=== PATIENT | female | born 1995 ===

== ENCOUNTER 2018-10-17 07:47 | Inpatient (IN) | payer OTHER ==
[2018-10-17] MEDS ORDERED: Lidocaine 5% Patch TD STA (07:55)
--- NOTE | 2018-10-17 07:57 | ED PDOC ---
Arrival/HPI - General Chief Complaint: Back Pain Time Seen by Provider: 10/17/18 07:47 Historian: Patient - History of Present Illness Narrative History of Present Illness (Text): 10/17/18 07:54 A 23 year old female, whose past medical history includes Hodgkin's Lymphoma, is brought into the emergency department via EMS for a complaint of lower back pain. The patient notes that she was walking when she suddenly felt a pain in her lower back. She notes that her legs went numb and she fell onto the floor. The patient states that she recently had a cold. The patient denies fevers, chills, headache, dizziness, chest pain, shortness of breath, dyspnea on exertion, abdominal pain, nausea, vomiting, diarrhea, urinary/bowel changes, or any other complaint. Time/Duration: Prior to Arrival Symptom Onset: Sudden Symptom Course: Unchanged Activities at Onset: Rest, Light Context: Walking, Street Past Medical History - Provider Review Nursing Documentation Reviewed: Yes - Cardiac Hx Cardiac Disorders: No - Pulmonary Hx Respiratory Disorders: No - Neurological Hx Neurological Disorder: No - HEENT Hx HEENT Disorder: No - Renal Hx Renal Disorder: No - Endocrine/Metabolic Hx Endocrine Disorders: No - Hematological/Oncological Hx Cancer: Yes (hodgkin's lymphoma) - Integumentary Hx Dermatological Disorder: No - Musculoskeletal/Rheumatological Hx Musculoskeletal Disorders: No - Psychiatric Hx Substance Use: No - Surgical History Other/Comment: Neck pain. 2 bone marrow biopsy Family/Social History - Physician Review Nursing Documentation Reviewed: Yes Family/Social History: No Known Family HX Smoking Status: Never Smoked Hx Alcohol Use: No Hx Substance Use: No Allergies/Home Meds Allergies/Adverse Reactions: Allergies No Known Allergies Allergy (Verified 10/17/18 07:53) Home Medications: Home Meds Medication Instructions Recorded Confirmed No Known Home Med 10/17/18 10/17/18 Review of Systems - Physician Review All systems were reviewed & negative as marked: Yes - Review of Systems Constitutional: absent: Fevers Respiratory: absent: SOB Cardiovascular: absent: Chest Pain, OLIVAREZ Gastrointestinal: absent: Abdominal Pain, Stool Changes, Diarrhea, Nausea, Vomiting Genitourinary Female: absent: Urine Output Changes Musculoskeletal: Back Pain (Lower back pain.) Neurological: absent: Headache, Dizziness Physical Exam - Physical Exam Narrative Physical Exam (Text): 10/17/18 07:59 Gen: VS reviewed, alert, well developed, well nourished, nontoxic. Severe distress secondary to pain. ENT: normal pharynx. Eye: EOMI, PERRL. Neck: no JVD, supple, no adenopathy. CV: regular rate, regular rhythm, no rubs, no murmur, no gallops, S1, S2, pulses equal and strong. Pulm: no distress, clear to auscultation, no wheeze, no rhonchi, breath sounds equal, no rales. Abd: soft, nontender, no guarding, no rebound, no rigidity, normal bowel sounds. Ext: no edema. Hip limited ROM secondary to pain. Lowe extremity exam limited due to severity of patient's pain. Back: Back exam limited due to severity of patient's pain. Skin: good color, no rash, no cyanosis. Psych: responds appropriately to questions, normal affect. Neuro: oriented x 3, CN2-12 intact grossly, motor intact, sensation intact. Vital Signs Reviewed: Yes Temperature: Afebrile Blood Pressure: Normal Pulse: Regular Respiratory Rate: Normal Appearance: Positive for: Well-Appearing, Non-Toxic Mental Status: Positive for: Alert and Oriented X 3 Medical Decision Making ED Course and Treatment: 10/17/18 08:02 Impression: A 23 year old female is brought into the via EMS for a complaint of sudden onset lower back pain as she was walking this morning. Plan: -- Lumbar Spine Spine X-Ray -- Labs -- Tylenol, Toradol, Flexeril, and Lidoderm -- Reassess and disposition Prior Visits: Notes and results from previous visits were reviewed. Progress Notes: 10/17/18 07:55: Pain medication given. Will reassess patient. 10/17/18 12:[address] graves. patient to be admitted for intractable low back pain. multiple interventions given for analgesia with marginal relief. ketamine infusion only to be trialed in the ED. it will be discontinued once the patient is to leave the ED. 10/17/18 12:21 - Lab Interpretations I have reviewed the lab results: Yes - RAD Interpretation Narrative RAD Interpretations (Text): PROCEDURE: Radiographs of the Lumbar Spine Date Signed: 10/17/18944 Signed By: Clementine Infante MD IMPRESSION: No acute displaced fracture or subluxation. PROCEDURE: MR LUMBAR SPINE WITHOUT CONTRAST Date Signed: 10/17/18 1203 Signed By: Payam Zambrano MD IMPRESSION: Mild broad- based left paracentral disc herniation encroaches the descending left S1 nerve root without causing significant stenosis overall. Widely patent central canal and neural foramina throughout otherwise. No significant central stenosis throughout the examination. - Scribe Statement The provider has reviewed the documentation as recorded by the Scribe Alena Oliver Provider Scribe Attestation: All medical record entries made by the Scribe were at my direction and personally dictated by me. I have reviewed the chart and agree that the record accurately reflects my personal performance of the history, physical exam, medical decision making, and the department course for this patient. I have also personally directed, reviewed, and agree with the discharge instructions and disposition. Disposition/Present on Arrival - Present on Arrival Any Indicators Present on Arrival: No History of DVT/PE: No History of Uncontrolled Diabetes: No Urinary Catheter: No History of Decub. Ulcer: No History Surgical Site Infection Following: None - Disposition Have Diagnosis and Disposition been Completed?: Yes Diagnosis: Low back pain, Lumbar herniated disc Disposition: HOSPITALIZED Disposition Time: 12:21 Patient Plan: Observation Patient Problems: Current Active Problems Problem Status Onset Low back pain Acute Lumbar herniated disc Acute Condition: STABLE Referrals: PCP,NO [Primary Care Provider] - Follow up with primary Forms: [employer] ([place])
[2018-10-17 08:19] LABS: BASO # 0.03 K/mm3 (0.0-2.0); BASO % 0.6 % (0.0-3.0); EOS # 0.3 (0.0-0.7); EOS % 5.8 % (1.5-5.0); GRAN # 2.67 (1.4-6.5); GRAN % 51.6 % (50.0-68.0); HEMOGLOBIN 12.8 g/dL (12.0-16.0); LYMPH # 1.7 (1.2-3.4); LYMPH % 32.1 % (22.0-35.0); MEAN CELL VOLUME 89.6 fl (80.0-105.0); MEAN CORPUSCULAR HEMOGLOBIN 30.3 pg (25.0-35.0); MEAN CORPUSCULAR HGB CONC 33.9 g/dl (31.0-37.0); MEAN PLATELET VOLUME 11.6 fl (7.0-11.0); MONO # 0.5 (0.1-0.6); MONO % 9.9 % (1.0-6.0); RBC 4.22 10^6/uL (3.5-6.1); WHITE BLOOD COUNT 5.2 10^3/uL (4.5-11.0)
[2018-10-17 08:51] LABS: ALB/GLOB RATIO 1.1 (1.1-1.8); ALT/SGPT 8 U/L (7-56); AST/SGOT 24 U/L (14-36); BLOOD UREA NITROGEN 11 mg/dL (7-21); CALCIUM 9.1 mg/dL (8.4-10.5); GFR NON-AFRICAN AMERICAN > 60
[2018-10-17] MEDS ORDERED: Morphine 4 mg/ml ISec IVP STA (09:36)
--- NOTE | 2018-10-17 09:48 | RAD ---
Date of service: 10/17/2018 PROCEDURE: Radiographs of the Lumbar Spine. HISTORY: pain COMPARISON: None available. FINDINGS: BONES: Alignment appears satisfactory. No listhesis. No acute displaced fracture identified. DISC SPACES: Unremarkable. OTHER FINDINGS: None. IMPRESSION: No acute displaced fracture or subluxation.
[2018-10-17] MEDS ORDERED: Ketamine 50 mg/ml Inj (10 ml) IV STA (11:41)
[2018-10-17] MEDS ORDERED: Ketamine 10 mg/ml Inj (20 ml) IVPB STA ×2 (11:57→11:58)
--- NOTE | 2018-10-17 12:07 | MRI ---
Date of service: 10/17/2018 PROCEDURE: MR LUMBAR SPINE WITHOUT CONTRAST HISTORY: severe in tractable pain, hx lymphoma COMPARISON: None available. TECHNIQUE: Multiecho multiplanar sequences were performed through the lumbar spine without the use of intravenous contrast. FINDINGS: Normal lumbar lordosis. Vertebral body heights are preserved. Marrow signal unremarkable. Conus medullaris unremarkable at the level of L1-2. Prevertebral and paraspinal soft tissues are unremarkable. T12-L1: No disc herniation, spinal canal stenosis or neural foraminal narrowing. L1-2: No disc herniation, spinal canal stenosis or neural foraminal narrowing. L2-3: No disc herniation, spinal canal stenosis or neural foraminal narrowing. L3-4: No disc herniation, spinal canal stenosis or neural foraminal narrowing. L4-5: No disc herniation, spinal canal stenosis or neural foraminal narrowing. L5-S1: Mild broad-based left paracentral disc herniation encroaches the descending left S1 nerve root without causing significant stenosis overall. Neural foramina appear widely patent bilaterally. OTHER FINDINGS: None. IMPRESSION: Mild broad-based left paracentral disc herniation encroaches the descending left S1 nerve root without causing significant stenosis overall. Widely patent central canal and neural foramina throughout otherwise. No significant central stenosis throughout the examination.
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
[2018-10-17] MEDS: Morphine 4 mg/ml ISec IVP PRN ×2 (16:58→21:13)
[2018-10-17 17:00] VITALS: BMI 22.6
[2018-10-18] MEDS: Morphine 4 mg/ml ISec IVP PRN ×4 (02:51→21:06)
[2018-10-18 06:41] LABS: BASO # 0.02 K/mm3 (0.0-2.0); BASO % 0.4 % (0.0-3.0); EOS # 0.3 (0.0-0.7); GRAN # 2.38 (1.4-6.5); HEMOGLOBIN 12.5 g/dL (12.0-16.0); LYMPH # 1.5 (1.2-3.4); LYMPH % 32.2 % (22.0-35.0); MEAN CELL VOLUME 88.8 fl (80.0-105.0); MEAN CORPUSCULAR HEMOGLOBIN 29.9 pg (25.0-35.0); MEAN CORPUSCULAR HGB CONC 33.7 g/dl (31.0-37.0); MEAN PLATELET VOLUME 11.7 fl (7.0-11.0); MONO # 0.4 (0.1-0.6); MONO % 8.4 % (1.0-6.0); RBC 4.18 10^6/uL (3.5-6.1); RED CELL DISTRIBUTION WIDTH 13.8 % (11.5-14.5); WHITE BLOOD COUNT 4.5 10^3/uL (4.5-11.0)
[2018-10-18 06:42] LABS: INR 1.07; PARTIAL THROMBOPLASTIN TIME 31.9 Seconds (25.1-36.5); PROTHROMBIN TIME 12.3 SECONDS (9.4-12.5)
[2018-10-18 07:17] LABS: ALB/GLOB RATIO 1.2 (1.1-1.8); ALBUMIN 3.8 g/dL (3.0-4.8); ALT/SGPT 60 U/L (7-56); AST/SGOT 119 U/L (14-36); BLOOD UREA NITROGEN 11 mg/dL (7-21); CALCIUM 9.2 mg/dL (8.4-10.5); GFR NON-AFRICAN AMERICAN > 60
[2018-10-18] MEDS ORDERED: Enoxaparin 40 mg Syringe SC SCH (10:00)
--- NOTE | 2018-10-18 12:29 | CP.PCM.CON ---
History of Present Illness - History of Present Illness History of Present Illness: SPINE pt seen and examined. Full consult dictated. Rec exc HNP. Discussed with pt and family, including alternative options. They wish to proceed with surgery. Tent sched for tomorrow afternoon. Past Patient History - Past Social History Smoking Status: Never Smoked - CARDIAC Hx Cardiac Disorders: No - PULMONARY Hx Respiratory Disorders: No - NEUROLOGICAL Hx Neurological Disorder: No - HEENT Hx HEENT Problems: No - RENAL Hx Chronic Kidney Disease: No - ENDOCRINE/METABOLIC Hx Endocrine Disorders: No - HEMATOLOGICAL/ONCOLOGICAL Hx Cancer: Yes (hodgkin's lymphoma) - INTEGUMENTARY Hx Dermatological Problems: No - MUSCULOSKELETAL/RHEUMATOLOGICAL Hx Musculoskeletal Disorders: No - PSYCHIATRIC Hx Substance Use: No - SURGICAL HISTORY Other/Comment: Neck pain. 2 bone marrow biopsy Meds Allergies/Adverse Reactions: Allergies Allergy/AdvReac Type Severity Reaction Status Date / Time No Known Allergies Allergy Verified 10/17/18 07:53 - Medications Medications: Current Medications Cyclobenzaprine HCl (Flexeril) 5 mg PO TID [facility] Last Admin: 10/18/18 09:48 Dose: Not Given Ketorolac Tromethamine (Toradol) 30 mg IVP Q6H PRN PRN Reason: Pain, moderate (4-7) Last Admin: 10/18/18 08:28 Dose: 30 mg Morphine Sulfate (Morphine) 4 mg IVP Q4H PRN PRN Reason: Pain, severe (8-10) Last Admin: 10/18/18 02:51 Dose: 4 mg Pantoprazole Sodium (Protonix Ec Tab) 40 mg PO ACB [facility] Results - Vital Signs Recent Vital Signs: Last Vital Signs Temp 98.2 F 10/18/18 06:00 Pulse 61 10/18/18 06:00 Resp 18 10/18/18 06:00 BP 110/68 10/18/18 06:00 Pulse Ox 100 10/18/18 06:00 - Labs Result Diagrams: 10/18/18 06:00 10/18/18 06:00 Labs: Laboratory Results - last 24 hr 10/18/18 10/18/18 10/18/18 06:00 06:00 06:00 WBC 4.5 RBC 4.18 Hgb 12.5 Hct 37.1 MCV 88.8 MCH 29.9 MCHC 33.7 RDW 13.8 Plt Count 176 MPV 11.7 H Gran % 53.0 Lymph % (Auto) 32.2 [place] % (Auto) 8.4 H Eos % (Auto) 6.0 H Baso % (Auto) 0.4 Gran # 2.38 Lymph # (Auto) 1.5 [place] # (Auto) 0.4 Eos # (Auto) 0.3 Baso # (Auto) 0.02 PT 12.3 INR 1.07 APTT 31.9 Sodium 140 Potassium 4.6 Chloride 108 H Carbon Dioxide 26 Anion Gap 10 BUN 11 Creatinine 0.7 Est GFR ( Amer) > 60 Est GFR (Non-Af Amer) > 60 Random Glucose 88 Calcium 9.2 Total Bilirubin 0.7 AST 119 H D ALT 60 H Alkaline Phosphatase 81 Total Protein 7.1 Albumin 3.8 Globulin 3.2 Albumin/Globulin Ratio 1.2
--- NOTE | 2018-10-18 14:17 | CP.PCM.PN ---
<Rodri Dominguez - Last Filed: 10/18/18 14:43> Subjective - Date & Time of Evaluation Date of Evaluation: 10/18/18 Time of Evaluation: 07:40 - Subjective Subjective: Medicine Progress Note for Hospitalist Service, Dr. Faustina Dominguez, DO PGY-1 Pt seen and examined at bedside this am. States low back pain is a little improved compared to yesterday. States Flexeril and Morphine are helping with her symptoms. No acute events reported overnight by staff. Denies fever, chills. chest pain, sob, n/v/d/c, abd pain, urinary complaints, or other symptoms. States that it is difficult to ambulate out of bed without eliciting the low back pain. Objective - Vital Signs/Intake and Output Vital Signs (last 24 hours): Temp Pulse Resp BP Pulse Ox 98.2 F 61 18 110/68 100 10/18/18 06:00 10/18/18 06:00 10/18/18 06:00 10/18/18 06:00 10/18/18 06:00 Intake and Output: 10/18/18 10/18/18 06:59 18:59 Intake Total 200 Balance 200 - Medications Medications: Current Medications Cyclobenzaprine HCl (Flexeril) 5 mg PO TID [facility] Last Admin: 10/18/18 09:48 Dose: Not Given Ketorolac Tromethamine (Toradol) 30 mg IVP Q6H PRN PRN Reason: Pain, moderate (4-7) Last Admin: 10/18/18 08:28 Dose: 30 mg Morphine Sulfate (Morphine) 4 mg IVP Q4H PRN PRN Reason: Pain, severe (8-10) Last Admin: 10/18/18 13:00 Dose: 4 mg Pantoprazole Sodium (Protonix Ec Tab) 40 mg PO ACB [facility] - Labs Labs: 10/18/18 06:00 10/18/18 06:00 PT 12.3 SECONDS (9.4-12.5) 10/18/18 06:00 INR 1.07 10/18/18 06:00 APTT 31.9 Seconds (25.1-36.5) 10/18/18 06:00 - Constitutional Appears: Non-toxic, No Acute Distress - Head Exam Head Exam: ATRAUMATIC, NORMOCEPHALIC - Eye Exam Eye Exam: EOMI, Normal appearance, PERRL - ENT Exam ENT Exam: Mucous Membranes Moist - Respiratory Exam Respiratory Exam: Clear to Ausculation Bilateral, NORMAL BREATHING PATTERN. absent: Rales, Rhonchi, Wheezes - Cardiovascular Exam Cardiovascular Exam: REGULAR RHYTHM, +S1, +S2. absent: Gallop, Rubs, Murmur - GI/Abdominal Exam GI & Abdominal Exam: Soft, Normal Bowel Sounds. absent: Distended, Guarding, Tenderness, Organomegaly - Extremities Exam Extremities Exam: Normal Capillary Refill. absent: Calf Tenderness, Pedal Edema Additional comments: Unable to bend hips b/l due to pain, able to move feet and bend at knees without concerns - Neurological Exam Neurological Exam: Alert, Awake, CN II-XII Intact, Oriented x3 - Skin Skin Exam: Dry, Intact, Normal Color, Warm Assessment and Plan - Assessment and Plan (Free Text) Assessment: 23 y o female PMhx Hodgkin's lymphoma, admitted for intractable back pain 2/2 herniated disc. Plan: Intractable back pain Admit to med/surg Lumbar spine XR: no acute displaced fx or subluxation Lumbar spine MRI: Mild broad-based L paracentral disc herniation encroaches the descending L S1 nerve root without causing significant stenosis overall. Widely patent central canal and neural foramina throughout otherwise. No significant central stenosis throughout the exam. Flexeril 5 mg PO tid Toradol 30 mg q 6 h prn for pain Morphine 4 mg q [address] Angelo consulted, recs appreciated; pt to be NPO after midnight tomorrow for discectomy Ordered pre-op CXR Will follow-up repeat labs in am Will continue to monitor response to tx DVT/GI ppx: SCDs, Lovenox; Protonix daily Diet: Regular Pt seen, examined with, and plan discussed with Dr. Simon, attending physician. Rodri Dominguez DO PGY-1, Circulation Crew Leader Pager #[phone] <Faustina Simon R - Last Filed: 10/18/18 20:49> Objective - Vital Signs/Intake and Output Vital Signs (last 24 hours): Temp Pulse Resp BP Pulse Ox 98.2 F 61 18 110/68 100 10/18/18 06:00 10/18/18 06:00 10/18/18 06:00 10/18/18 06:00 10/18/18 06:00 - Medications Medications: Current Medications Cyclobenzaprine HCl (Flexeril) 5 mg PO TID [facility] Last Admin: 10/18/18 16:31 Dose: Not Given Ketorolac Tromethamine (Toradol) 30 mg IVP Q6H PRN PRN Reason: Pain, moderate (4-7) Last Admin: 10/18/18 08:28 Dose: 30 mg Morphine Sulfate (Morphine) 4 mg IVP Q4H PRN PRN Reason: Pain, severe (8-10) Last Admin: 10/18/18 16:31 Dose: 4 mg Pantoprazole Sodium (Protonix Ec Tab) 40 mg PO ACB [facility] - Labs Labs: 10/18/18 06:00 10/18/18 06:00 PT 12.3 SECONDS (9.4-12.5) 10/18/18 06:00 INR 1.07 10/18/18 06:00 APTT 31.9 Seconds (25.1-36.5) 10/18/18 06:00 Attending/Attestation - Attestation I have personally seen and examined this patient.: Yes I have fully participated in the care of the patient.: Yes I have reviewed all pertinent clinical information, including history, physical exam and plan: Yes Notes (Text): Patient seen and examined by me with resident at 9:40 AM on 10/18/18. Case including HPI, physical exam, and assessment and plan discussed with resident. Agree with above with following additions/corrections. Patient is a 23 year old female with past medical history significant for Hodgkins lymphoma in remission that presented to the emergency room with intractable lower back pain. Patient states she is still in a lot of pain. Patient states the pain in her lower back in the middle of her spine and radiates bilaterally and down her legs. Patient has numbness and weakness in her legs. Patient is sharp in nature. Movement makes it worse. Pain medications help the pain a little. No bowel or urinary incontinence. No chest pain or shortness of breath. No headaches or dizziness. No nausea, vomiting, or abdominal pain. No fevers or chills. No dysuria. Physical exam: General: Awake and alert lying in bed in some distress HEENT: Normocephalic, atraumatic. Extraocular muscles intact, pupils equal and reactive, no scleral icterus. Oropharynx is pink and moist. Neck is supple. Cardiovascular: Normal rhythm. Normal S1 and S2. No rubs or gallops appreciated Pulmonary: Normal respiratory effort. No rhonchi, rales, or wheezing appreciated. Gastrointestinal: Soft, nondistended. Nontender. Positive bowel sounds all 4 quadrants. No guarding. Musculoskeletal: Moves all extremities. Decreased range of motion lower extremities. Positive straight test leg bilaterally. Positive lumbar paraspinal muscle tenderness bilaterally. Central nervous system: AAO x3. CN 2-12 grossly intact. Positive numbness left great and second toe. Dermatologic: Skin warm and dry. Assessment and plan: Patient is a 23 year old female with past medical history significant for Hodgkins lymphoma in remission that presented to the emergency room with intractable lower back pain. 1. Intractable back pain. MRI lumbar spine per radiologist shows mild broad- based left paracentral disc herniation encroaches the descending left S1 nerve root without causing significant stenosis overall, widely patent central canal and neural foramina throughout otherwise, no significant central stenosis throughout. Patient with positive leg test bilaterally and numbness in left toes. Pain unable to move. Patient on flexeril, toradol, and IV morphine. Neurosurgery following, recommendations appreciated. Patient for microdiskectomy tomorrow. PT eval and treat. 2. History of Hodgkins lymphoma. No acute issues. In remission Case was discussed in detail with patient regarding current diagnosis and treatment plan. All questions answered.
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
[2018-10-19] MEDS: Morphine 4 mg/ml ISec IVP PRN ×3 (01:07→10:18)
[2018-10-19 02:29] LABS: URINE BILIRUBIN NEGATIVE (NEGATIVE); URINE BLOOD NEGATIVE (NEGATIVE); URINE GLUCOSE (UA) NEGATIVE (NEGATIVE); URINE LEUKOCYTE ESTERASE SMALL Leu/uL (NEGATIVE); URINE PROTEIN TRACE mg/dL (<30 mg/dL); URINE UROBILINOGEN 0.2 E.U./dL (<1 E.U./dL)
[2018-10-19 02:32] LABS: URINE APPEARANCE SL CLOUDY (CLEAR); URINE COLOR YELLOW (YELLOW)
[2018-10-19 02:36] LABS: HCG,QUALITATIVE URINE NEGATIVE (NEGATIVE)
[2018-10-19 02:40] LABS: URINE BACTERIA MANY (NEG); URINE EPITHELIAL CELLS 0 - 2 /hpf (0-5); URINE RBC 0 - 2 /hpf (0-2); URINE WBC 25 - 30 /hpf (0-6)
[2018-10-19 07:57] LABS: BASO # 0.01 K/mm3 (0.0-2.0); BASO % 0.2 % (0.0-3.0); EOS # 0.3 (0.0-0.7); EOS % 6.9 % (1.5-5.0); GRAN # 2.03 (1.4-6.5); GRAN % 46.7 % (50.0-68.0); HEMOGLOBIN 12.3 g/dL (12.0-16.0); LYMPH # 1.7 (1.2-3.4); LYMPH % 37.9 % (22.0-35.0); MEAN CELL VOLUME 88.9 fl (80.0-105.0); MEAN CORPUSCULAR HEMOGLOBIN 30.2 pg (25.0-35.0); MEAN PLATELET VOLUME 10.9 fl (7.0-11.0); MONO # 0.4 (0.1-0.6); MONO % 8.3 % (1.0-6.0); RBC 4.07 10^6/uL (3.5-6.1); RED CELL DISTRIBUTION WIDTH 13.9 % (11.5-14.5); WHITE BLOOD COUNT 4.4 10^3/uL (4.5-11.0)
--- NOTE | 2018-10-19 08:14 | RAD ---
Date of service: 10/18/2018 HISTORY: pre-op clearance COMPARISON: No prior. FINDINGS: LUNGS: No active pulmonary disease. PLEURA: No significant pleural effusion identified, no pneumothorax apparent. CARDIOVASCULAR: No aortic atherosclerotic calcification present. Normal cardiac size. No pulmonary vascular congestion. OSSEOUS STRUCTURES: No significant abnormalities. VISUALIZED UPPER ABDOMEN: Normal. OTHER FINDINGS: None. IMPRESSION: No acute cardiopulmonary disease appreciated.
[2018-10-19 08:17] LABS: ALB/GLOB RATIO 1.2 (1.1-1.8); ALBUMIN 3.9 g/dL (3.0-4.8); ALT/SGPT 43 U/L (7-56); AST/SGOT 55 U/L (14-36); BLOOD UREA NITROGEN 10 mg/dL (7-21); CALCIUM 9.4 mg/dL (8.4-10.5); GFR NON-AFRICAN AMERICAN > 60
[2018-10-19] MEDS: Pantoprazole 40 mg EC Tab PO SCH (09:00)
[2018-10-19] MEDS ORDERED: cefTRIAXone 1 gm 1 GM/100 ML BAG IVPB SCH (10:00)
--- NOTE | 2018-10-19 12:37 | CP.PCM.PN ---
<Rodri Dominguez - Last Filed: 10/19/18 12:33> Subjective - Date & Time of Evaluation Date of Evaluation: 10/19/18 Time of Evaluation: 07:30 - Subjective Subjective: Medicine Progress Note for Hospitalist Service, Dr. Faustina Dominguez, DO PGY-1 Pt seen and examined at bedside this am. Resting at bedside, states she is comfortable at the moment but that when she moves from side to side the pain is elicited. States that she walked to go to the bathroom overnight with assistance and was able to urinate but that her back pain flared up when she tried to squat. Denies fever, chills, chest pain, sob, n/v/d/c, abd pain, urinary complaints, or other symptoms. No acute events reported overnight by staff. Objective - Vital Signs/Intake and Output Vital Signs (last 24 hours): Temp Pulse Resp BP Pulse Ox 97.9 F 65 18 100/59 L 100 10/19/18 06:00 10/19/18 06:00 10/19/18 06:00 10/19/18 06:00 10/19/18 06:00 - Medications Medications: Current Medications Cyclobenzaprine HCl (Flexeril) 5 mg PO TID LAZARUS Last Admin: 10/19/18 10:18 Dose: Not Given Ceftriaxone Sodium (Rocephin 1 Gram Ivpb) 1 gm in 100 mls @ 100 mls/hr IVPB DAILY [facility]; Protocol Last Admin: 10/19/18 10:17 Dose: 100 mls/hr Ketorolac Tromethamine (Toradol) 30 mg IVP Q6H PRN PRN Reason: Pain, moderate (4-7) Last Admin: 10/18/18 08:28 Dose: 30 mg Morphine Sulfate (Morphine) 4 mg IVP Q4H PRN PRN Reason: Pain, severe (8-10) Last Admin: 10/19/18 10:18 Dose: 4 mg Pantoprazole Sodium (Protonix Ec Tab) 40 mg PO ACB LAZARUS Last Admin: 10/19/18 09:00 Dose: Not Given - Labs Labs: 10/19/18 07:15 10/19/18 07:15 PT 12.3 SECONDS (9.4-12.5) 10/18/18 06:00 INR 1.07 10/18/18 06:00 APTT 31.9 Seconds (25.1-36.5) 10/18/18 06:00 - Constitutional Appears: Non-toxic, No Acute Distress - Head Exam Head Exam: ATRAUMATIC, NORMOCEPHALIC - Eye Exam Eye Exam: EOMI, Normal appearance, PERRL - ENT Exam ENT Exam: Mucous Membranes Moist - Neck Exam Neck Exam: Full ROM, Normal Inspection. absent: Tenderness - Respiratory Exam Respiratory Exam: Clear to Ausculation Bilateral, NORMAL BREATHING PATTERN. absent: Rales, Rhonchi, Wheezes - Cardiovascular Exam Cardiovascular Exam: REGULAR RHYTHM, +S1, +S2. absent: Gallop, Rubs, Murmur - GI/Abdominal Exam GI & Abdominal Exam: Soft, Normal Bowel Sounds. absent: Distended, Guarding, Tenderness, Organomegaly - Extremities Exam Extremities Exam: Normal Capillary Refill. absent: Tenderness - Back Exam Back Exam: NORMAL INSPECTION Additional comments: Low back pain elicited with palpation and when pt flexes hips b/l - Neurological Exam Neurological Exam: Alert, Awake, CN II-XII Intact, Oriented x3 - Skin Skin Exam: Dry, Intact, Normal Color, Warm Assessment and Plan - Assessment and Plan (Free Text) Assessment: 23 y o female PMhx Hodgkin's lymphoma, admitted for intractable back pain 2/2 herniated disc. Plan: Intractable back pain Lumbar spine XR: no acute displaced fx or subluxation Lumbar spine MRI: Mild broad-based L paracentral disc herniation encroaches the descending L S1 nerve root without causing significant stenosis overall. Widely patent central canal and neural foramina throughout otherwise. No significant central stenosis throughout the exam. Flexeril 5 mg PO tid Toradol 30 mg q 6 h prn for pain Morphine 4 mg q [address] for pain Dr[address] Angelo consulted, recs appreciated; pt to OR today for discectomy Pre-op CXR demonstrates no acute cardiopulmonary disease Will follow-up repeat labs in am Will continue to monitor response to tx UTI - pt currently asymptomatic except for b/l low back pain; denies dysuria, burning with urination U/a on admission with pos nitrate, small LE, WBCs 25-30 Started on 1 g Rocephin IVPB daily DVT/GI ppx: SCDs, Lovenox; Protonix daily Diet: NPO, will resume regular diet after OR procedure Pt seen, examined with, and plan discussed with Dr. Simon, attending physician. Rodri Dominguez DO PGY-1, Full Stack Web Developer Pager #[phone] <Faustina Simon R - Last Filed: 10/20/18 16:35> Objective - Vital Signs/Intake and Output Vital Signs (last 24 hours): Temp Pulse Resp BP Pulse Ox 98.3 F 65 20 110/43 L 99 10/20/18 07:00 10/20/18 07:00 10/20/18 07:00 10/20/18 07:00 10/20/18 07:00 Intake and Output: 10/20/18 10/20/18 06:59 18:59 Intake Total 740 Balance 740 - Medications Medications: Current Medications Cefpodoxime Proxetil (Vantin) 200 mg PO Q12 [facility] Stop: 10/21/18 10:59 Last Admin: 10/20/18 10:38 Dose: 200 mg Cyclobenzaprine HCl (Flexeril) 5 mg PO TID LAZARUS Last Admin: 10/20/18 14:58 Dose: 5 mg Hydromorphone HCl (Dilaudid) 1 mg IVP Q4H PRN PRN Reason: Pain, severe (8-10) Stop: 10/21/18 12:30 Last Admin: 10/20/18 13:21 Dose: 1 mg Ketorolac Tromethamine (Toradol) 30 mg IVP Q6H [facility]ARUS Last Admin: 10/20/18 14:21 Dose: Not Given Oxycodone/Acetaminophen (Percocet 5/325 Mg Tab) 1 tab PO Q4 PRN PRN Reason: Pain, Mild (1-3) Last Admin: 10/19/18 18:55 Dose: 1 tab Pantoprazole Sodium (Protonix Ec Tab) 40 mg PO ACB LAZARUS Last Admin: 10/20/18 10:38 Dose: 40 mg - Labs Labs: 10/20/18 06:30 10/20/18 06:30 PT 12.3 SECONDS (9.4-12.5) 10/18/18 06:00 INR 1.07 10/18/18 06:00 APTT 31.9 Seconds (25.1-36.5) 10/18/18 06:00 Attending/Attestation - Attestation I have personally seen and examined this patient.: Yes I have fully participated in the care of the patient.: Yes I have reviewed all pertinent clinical information, including history, physical exam and plan: Yes Notes (Text): Patient seen and examined by me with resident at 10 AM on . Case including HPI, physical exam, and assessment and plan discussed with resident. Agree with above with following additions/corrections. Patient is a 23 year old female with past medical history significant for Hodgkins lymphoma in remission that presented to the emergency room with intractable lower back pain. Patient states she continues to have a lot of lower back pain. She states that she is having difficulty moving. No numbness, weakness, or tingling in her legs or toes today. Pain is still sharp in nature. Pain medications are helping. No bowel or urinary incontinence. No chest pain or shortness of breath. No headaches or dizziness. No nausea, vomiting, or abdominal pain. No fevers or chills. No dysuria. Physical exam: General: Awake and alert lying in bed in some distress HEENT: Normocephalic, atraumatic. Extraocular muscles intact, pupils equal and reactive, no scleral icterus. Oropharynx is pink and moist. Neck is supple. Cardiovascular: Normal rhythm. Normal S1 and S2. No rubs or gallops appreciated Pulmonary: Normal respiratory effort. No rhonchi, rales, or wheezing appreciated. Gastrointestinal: Soft, nondistended. Nontender. Positive bowel sounds all 4 quadrants. No guarding. Musculoskeletal: Moves all extremities. Decreased range of motion lower extremities. Positive straight test leg bilaterally. Positive lumbar paraspinal muscle tenderness bilaterally. Central nervous system: AAO x3. CN 2-12 grossly intact. Dermatologic: Skin warm and dry. Assessment and plan: Patient is a 23 year old female with past medical history significant for Hodgkins lymphoma in remission that presented to the emergency room with intractable lower back pain. 1. Intractable back pain. MRI lumbar spine per radiologist shows mild broad- based left paracentral disc herniation encroaches the descending left S1 nerve root without causing significant stenosis overall, widely patent central canal and neural foramina throughout otherwise, no significant central stenosis throughout. Patient with positive leg test bilaterally. Continue flexeril, toradol, and IV morphine. Neurosurgery following, recommendations appreciated. Patient for microdiskectomy today. PT eval and treat post surgery. 2. UTI. Urinalysis positive for UTI. ?UTI may be contributing to pain. Will place on Rocephin 3. History of Hodgkins lymphoma. No acute issues. In remission Case was discussed in detail with patient regarding current diagnosis and treatment plan. All questions answered.
[2018-10-19] MEDS ORDERED: Lidocaine 1% w Epi 1:100,000 Inj ONE (13:25)
[2018-10-19] MEDS ORDERED: Bupivacaine 0.5% 50 ML IJ ONE (13:25)
[2018-10-19] MEDS ORDERED: Absorbable Gelatin Sponge Size 100 ONE (13:25)
[2018-10-19] MEDS ORDERED: Thrombin Topical 20,000 Intl Units Spray Kit TOP ONE (13:26)
[2018-10-19] MEDS ORDERED: Remifentanil 2 MG PDS IV ONE (13:53)
[2018-10-19] MEDS ORDERED: Propofol 10 mg/ml Inj (20 ML) ONE (13:55)
[2018-10-19] MEDS ORDERED: Midazolam 2 MG/2 ML VIAL ONE (13:56)
[2018-10-19] MEDS ORDERED: Rocuronium 10 mg/ml (5 ml) ONE (13:57)
[2018-10-19] MEDS ORDERED: Lidocaine 1%/Epinephrine 1:100000 30 ml vial IJ ONE (14:52)
[2018-10-19] MEDS ORDERED: Bupivacaine 0.5% Inj(30mL) IJ ONE (15:35)
[2018-10-19] MEDS ORDERED: Potassium Ch 20mEq in D5-1/2NS 1,000 ML IV SCH (15:57)
[2018-10-19] MEDS: HYDROmorphone 0.5 mg/0.5 ml ISec IVP PRN ×2 (16:45→17:00)
[2018-10-19] MEDS ORDERED: HYDROmorphone 0.5 mg/0.5 ml ISec ONE ×2 (16:50→17:05)
[2018-10-19] MEDS: Oxycodone/Acetaminophen 5/325 mg Tab PO PRN (18:55)
[2018-10-19] MEDS: HYDROmorphone 1 mg/ml ISec IVP PRN (19:33)
[2018-10-20] MEDS: HYDROmorphone 1 mg/ml ISec IVP PRN ×5 (00:28→19:55)
[2018-10-20 07:13] LABS: BASO # 0.01 K/mm3 (0.0-2.0); BASO % 0.2 % (0.0-3.0); EOS # 0.3 (0.0-0.7); EOS % 5.5 % (1.5-5.0); GRAN # 3.64 (1.4-6.5); GRAN % 62.2 % (50.0-68.0); HEMOGLOBIN 11.3 g/dL (12.0-16.0); LYMPH # 1.3 (1.2-3.4); LYMPH % 22.7 % (22.0-35.0); MEAN CELL VOLUME 89.2 fl (80.0-105.0); MEAN CORPUSCULAR HEMOGLOBIN 29.7 pg (25.0-35.0); MEAN CORPUSCULAR HGB CONC 33.3 g/dl (31.0-37.0); MEAN PLATELET VOLUME 11.3 fl (7.0-11.0); MONO # 0.6 (0.1-0.6); MONO % 9.4 % (1.0-6.0); RBC 3.8 10^6/uL (3.5-6.1); RED CELL DISTRIBUTION WIDTH 13.8 % (11.5-14.5); WHITE BLOOD COUNT 5.9 10^3/uL (4.5-11.0)
[2018-10-20 07:38] LABS: ALB/GLOB RATIO 1.2 (1.1-1.8); ALBUMIN 3.6 g/dL (3.0-4.8); ALT/SGPT 31 U/L (7-56); AST/SGOT 35 U/L (14-36); BLOOD UREA NITROGEN 10 mg/dL (7-21); CALCIUM 9.2 mg/dL (8.4-10.5); GFR NON-AFRICAN AMERICAN > 60
--- NOTE | 2018-10-20 08:43 | OP ---
PROCEDURE DATE: 10/19/2018 PREOPERATIVE DIAGNOSIS: Hernia, large herniated disk L5-S1. POSTOPERATIVE DIAGNOSIS: Hernia, large herniated disk L5-S1. OPERATION: Excision, herniated disk. SURGEON: Micky Angelo MD WEIGHTER: Reinaldo De La Cruz MD ANESTHESIA: General endotracheal tube intubation. DESCRIPTION OF PROCEDURE: The patient was brought to the operative room and general anesthesia was achieved. Intravenous antibiotics were administered and spinal cord monitoring leads were placed throughout the patient's body. Real-time monitoring was done by a electronics technician in the room and remote monitoring done by a physician as well. Sequential compression boots were placed in each of the patient's legs. The patient was then gently transferred onto the operating table and placed prone on a [place] frame keeping her abdomen and breasts free from pressure anteriorly. Care was taken to protect the elbows and knees from pressure points. A sterile drape was used to seal off the patient's perineal region from the operative field and her back was sterilely prepped and draped. Level of the incision was noted under fluoroscopy and infiltrated with lidocaine with epinephrine. An incision was made sharply in the midline, taken down to subcutaneous tissue using sharp and blunt dissection. Hemostasis was achieved using electrocautery. The fascia was divided and stripped laterally off the spinous process and lamina on the left side at the L5-S1 level as confirmed under fluoroscopy. A [place] retractor was placed around the facet joint and tied down and we had excellent visualization of the interspace. Another fluoroscopic view was taken with a curette at the entry point and again the level was verified with fluoroscopy. A hemilaminotomy was then carried out using [place] rongeurs. Thecal sac and S1 root were identified. They were under some tension. They were gently retracted with a nerve root retractor and disk space could be visualized. Hemostasis was achieved with bipolar cautery. A needle was placed in the disk and again it was verified under fluoroscopy that this is the L5-S1 level. The needle was removed. The annulus was incised. As soon as the annulus was incised, disk material protruded immediately out of the disk, indicative of the pressure that was there. Disk material was then removed with a combination of pituitary rongeur and the use of down-angled curette. A nerve hook and [place] tool were used after the decompression was done to be certain there was no other obvious pressure along the ventral surface of the thecal sac and no fragments were encountered. The L5 foramen on the left was tight, foraminotomy was carried out as well until we could easily pass the [place] tool. The patient did complain of some numbness by her great toe and second toe of the left foot preoperatively, so perhaps this localized stenosis was the etiology of that. The disk space was copiously irrigated with antibiotic solution. Bacitracin powder was placed in the disk space. Hemostasis was achieved with thrombinated Gelfoam powder and bipolar cautery. Solid Gelfoam was used to cover the exposed neural elements. The wound was then closed in layers with interrupted sutures of 0 Vicryl for the fascia, 2-0 Vicryl for the subcutaneous tissue after further antibiotic irrigation, running subcuticular suture of 3-0 Monocryl for the skin. Dermabond was then applied. Once that was dried, the patient was placed back in the supine position on her bed. She was awakened and extubated. She was taken to the recovery room in stable condition having tolerated the procedure well. No permanent electrophysiologic abnormalities were noted at the completion of the case. Estimated blood loss was 50 mL and she received 600 mL of crystalloid during the operation. She was actively moving both lower extremities upon her arrival in Recovery. Micky Angelo MD
--- NOTE | 2018-10-20 10:21 | RAD ---
Date of service: 10/19/2018 PROCEDURE: Fluoroscopy up to 1 hr HISTORY: EXCISION OF HERNIATED DISC COMPARISON: TECHNIQUE: Fluoroscopy was provided in the operating room. 12.5 sec of fluoro time. Cumulative dose 5.14 mGy. Two images were submitted FINDINGS: Lateral images of the lower lumbar spine show a retract ir and needle marker at the L5-S1 level IMPRESSION: As above
[2018-10-20] MEDS: Pantoprazole 40 mg EC Tab PO SCH (10:38)
[2018-10-20] MEDS: Cefpodoxime (Vantin) 200 mg Tab PO SCH ×2 (10:38→21:28)
--- NOTE | 2018-10-20 12:23 | CP.PCM.PN ---
<Rodri Dominguez - Last Filed: 10/20/18 12:30> Subjective - Date & Time of Evaluation Date of Evaluation: 10/20/18 Time of Evaluation: 07:40 - Subjective Subjective: Medicine Progress Note for Hospitalist Service, Dr. Faustina Dominguez, DO PGY-1 Pt seen and examined at bedside this am. States low back pain has improved. Able to rotate from side to side in bed with ease, able to sit up and ambulate to bathroom without concerns. Admits to not being able to fully stand up straight, but otherwise denies any acute complaints or concerns. Reports pain well controlled. Admits to passing flatus. Denies headache, fevers, chills, chest pain, sob, n/v/d/c, abd pain, urinary complaints, or other symptoms. No acute events reported overnight by staff. Using incentive spirometry as instructed. Objective - Vital Signs/Intake and Output Vital Signs (last 24 hours): Temp Pulse Resp BP Pulse Ox 98.3 F 65 20 110/43 L 99 10/20/18 07:00 10/20/18 07:00 10/20/18 07:00 10/20/18 07:00 10/20/18 07:00 Intake and Output: 10/20/18 10/20/18 06:59 18:59 Intake Total 740 Balance 740 - Medications Medications: Current Medications Cefpodoxime Proxetil (Vantin) 200 mg PO Q12 [facility] Stop: 10/21/18 10:59 Last Admin: 10/20/18 10:38 Dose: 200 mg Cyclobenzaprine HCl (Flexeril) 5 mg PO TID [facility] Last Admin: 10/20/18 10:38 Dose: 5 mg Ketorolac Tromethamine (Toradol) 30 mg IVP Q6H [facility] Oxycodone/Acetaminophen (Percocet 5/325 Mg Tab) 1 tab PO Q4 PRN PRN Reason: Pain, Mild (1-3) Stop: 10/22/18 15:58 Last Admin: 10/19/18 18:55 Dose: 1 tab Pantoprazole Sodium (Protonix Ec Tab) 40 mg PO ACB [facility] Last Admin: 10/20/18 10:38 Dose: 40 mg - Labs Labs: 10/20/18 06:30 10/20/18 06:30 PT 12.3 SECONDS (9.4-12.5) 10/18/18 06:00 INR 1.07 10/18/18 06:00 APTT 31.9 Seconds (25.1-36.5) 10/18/18 06:00 - Constitutional Appears: Non-toxic, No Acute Distress - Head Exam Head Exam: ATRAUMATIC, NORMOCEPHALIC - Eye Exam Eye Exam: EOMI, Normal appearance, PERRL - ENT Exam ENT Exam: Mucous Membranes Moist - Respiratory Exam Respiratory Exam: Clear to Ausculation Bilateral, NORMAL BREATHING PATTERN. absent: Rales, Rhonchi, Wheezes - Cardiovascular Exam Cardiovascular Exam: REGULAR RHYTHM, +S1, +S2. absent: Gallop, Rubs, Murmur - GI/Abdominal Exam GI & Abdominal Exam: Soft, Normal Bowel Sounds. absent: Distended, Guarding, Tenderness, Organomegaly - Extremities Exam Extremities Exam: Full ROM, Normal Capillary Refill, Normal Inspection. absent: Calf Tenderness, Pedal Edema - Neurological Exam Neurological Exam: Alert, Awake, CN II-XII Intact, Oriented x3 - Skin Skin Exam: Dry, Intact, Normal Color, Warm Additional comments: Surgical site in lower back healing, no abnormal drainage or discharge noted from site Assessment and Plan - Assessment and Plan (Free Text) Assessment: 23 y o female PMhx Hodgkin's lymphoma, admitted for intractable back pain 2/2 herniated disc. S/p excision of herniated disc L5-S1 POD#[address] Angelo. Plan: Intractable back pain - improving Lumbar spine XR: no acute displaced fx or subluxation Lumbar spine MRI: Mild broad-based L paracentral disc herniation encroaches the descending L S1 nerve root without causing significant stenosis overall. Widely patent central canal and neural foramina throughout otherwise. No significant central stenosis throughout the exam. Flexeril 5 mg PO tid Toradol 30 mg q 6 h stanislaw for pain Dilaudid 1 mg q 4 h prn for pain as per Dr. Angelo Percocet 1 tab PO q4h prn Dr. Angelo consulted, recs appreciated; s/p excision of herniated disc L5-S1 POD#1 Pre-op CXR demonstrates no acute cardiopulmonary disease Will continue to monitor response to tx Encourage incentive spirometry PT eval pending UTI - pt currently asymptomatic except for b/l low back pain; denies dysuria, burning with urination U/a on admission with pos nitrate, small LE, WBCs 25-30 On PO Vantin 200 mg q12h DVT/GI ppx: SCDs, Lovenox; Protonix daily Diet: Regular Pt seen, examined with, and plan discussed with Dr. Simon, attending physician. Rodri Dominguez DO PGY-1, [email or web address] Pager #[phone] <Faustina Simon R - Last Filed: 10/21/18 15:05> Objective - Vital Signs/Intake and Output Vital Signs (last 24 hours): Temp Pulse Resp BP Pulse Ox 98 F 61 20 102/48 L 100 10/21/18 06:00 10/21/18 06:00 10/21/18 06:00 10/21/18 06:00 10/21/18 06:00 Intake and Output: 10/21/18 10/21/18 06:59 18:59 Intake Total 500 Balance 500 - Medications Medications: Current Medications Cyclobenzaprine HCl (Flexeril) 5 mg PO TID [facility] Last Admin: 10/21/18 10:29 Dose: 5 mg Ketorolac Tromethamine (Toradol) 30 mg IVP Q6H [facility] Last Admin: 10/21/18 08:27 Dose: 30 mg Pantoprazole Sodium (Protonix Ec Tab) 40 mg PO ACB [facility] Last Admin: 10/21/18 08:29 Dose: 40 mg - Labs Labs: 10/21/18 06:30 10/21/18 06:30 PT 12.3 SECONDS (9.4-12.5) 10/18/18 06:00 INR 1.07 10/18/18 06:00 APTT 31.9 Seconds (25.1-36.5) 10/18/18 06:00 Attending/Attestation - Attestation I have personally seen and examined this patient.: Yes I have fully participated in the care of the patient.: Yes I have reviewed all pertinent clinical information, including history, physical exam and plan: Yes Notes (Text): Patient seen and examined by me with resident at 11:10 AM on 10/20/18. Case including HPI, physical exam, and assessment and plan discussed with resident. Agree with above with following additions/corrections. Patient is a 23 year old female with past medical history significant for Hodgkins lymphoma in remission that presented to the emergency room with intractable lower back pain. Patient states she is feeling ok. Still with back pain but slightly improved. States she can move around a little better. Pain medications are helping with pain. Patient complains of more pain at the incision site. No numbness, weakness, or tingling in her legs or toes today. No bowel or urinary incontinen ce. No chest pain or shortness of breath. No headaches or dizziness. No nausea, vomiting, or abdominal pain. No fevers or chills. No dysuria. Physical exam: General: Awake and alert lying in bed in some distress HEENT: Normocephalic, atraumatic. Extraocular muscles intact, pupils equal and reactive, no scleral icterus. Oropharynx is pink and moist. Neck is supple. Cardiovascular: Normal rhythm. Normal S1 and S2. No rubs or gallops appreciated Pulmonary: Normal respiratory effort. No rhonchi, rales, or wheezing appreciated. Gastrointestinal: Soft, nondistended. Nontender. Positive bowel sounds all 4 quadrants. No guarding. Musculoskeletal: Moves all extremities. Decreased range of motion lower extremities. Positive lumbar paraspinal muscle tenderness bilaterally. Lower lumbar incision site clean, dry, and intact. Central nervous system: AAO x3. CN 2-12 grossly intact. Dermatologic: Skin warm and dry. Assessment and plan: Patient is a 23 year old female with past medical history significant for Hodgkins lymphoma in remission that presented to the emergency room with intractable lower back pain. 1. Intractable back pain. S/P microdiskectomy today10/19/18. Patient for physica l therapy today. Continue pain medications per Dr. Angelo for 24 hours. MRI lumbar spine per radiologist shows mild broad-based left paracentral disc herniation encroaches the descending left S1 nerve root without causing significant stenosis overall, widely patent central canal and neural foramina throughout otherwise, no significant central stenosis throughout. Patient with positive leg test bilaterally. Neurosurgery following, recommendations appreciated. 2. UTI. Urinalysis positive for UTI. ?UTI may be contributing to pain. Continue Rocephin 3. History of Hodgkins lymphoma. No acute issues. In remission Case was discussed in detail with patient regarding current diagnosis and treatm ent plan. All questions answered.
--- NOTE | 2018-10-20 12:26 | CP.PCM.PN ---
Subjective - Date & Time of Evaluation Date of Evaluation: 10/20/18 Time of Evaluation: 12:19 - Subjective Subjective: SPINE - POD #1 Pt complains of pain at surgical site. Has been OOB amb to BR. + flatus. VSS. Incision flat, clean, dry. She is exquisitely tender to even the lightest touch well away from incision on the right side. Neuro intact. Plan: Continue Dilaudid for 24 hrs, then change to oral analgesics. Wrote for Toradol q6h, not prn, but order not taken that way. Reordered that now. PT to see pt today. Objective - Vital Signs/Intake and Output Vital Signs (last 24 hours): Temp Pulse Resp BP Pulse Ox 98.3 F 65 20 110/43 L 99 10/20/18 07:00 10/20/18 07:00 10/20/18 07:00 10/20/18 07:00 10/20/18 07:00 Intake and Output: 10/20/18 10/20/18 06:59 18:59 Intake Total 740 Balance 740 - Medications Medications: Current Medications Cefpodoxime Proxetil (Vantin) 200 mg PO Q12 [facility] Stop: 10/21/18 10:59 Last Admin: 10/20/18 10:38 Dose: 200 mg Cyclobenzaprine HCl (Flexeril) 5 mg PO TID [facility] Last Admin: 10/20/18 10:38 Dose: 5 mg Ketorolac Tromethamine (Toradol) 30 mg IVP Q6H [facility] Oxycodone/Acetaminophen (Percocet 5/325 Mg Tab) 1 tab PO Q4 PRN PRN Reason: Pain, Mild (1-3) Stop: 10/22/18 15:58 Last Admin: 10/19/18 18:55 Dose: 1 tab Pantoprazole Sodium (Protonix Ec Tab) 40 mg PO ACB [facility] Last Admin: 10/20/18 10:38 Dose: 40 mg - Labs Labs: 10/20/18 06:30 10/20/18 06:30 PT 12.3 SECONDS (9.4-12.5) 10/18/18 06:00 INR 1.07 10/18/18 06:00 APTT 31.9 Seconds (25.1-36.5) 10/18/18 06:00
[2018-10-20] MEDS: Oxycodone/Acetaminophen 5/325 mg Tab PO PRN ×2 (17:27→21:27)
[2018-10-21] MEDS: HYDROmorphone 1 mg/ml ISec IVP PRN ×3 (00:33→10:30)
[2018-10-21] MEDS: Oxycodone/Acetaminophen 5/325 mg Tab PO PRN (06:42)
[2018-10-21 06:53] LABS: BASO # 0.02 K/mm3 (0.0-2.0); BASO % 0.4 % (0.0-3.0); EOS # 0.4 (0.0-0.7); EOS % 7.9 % (1.5-5.0); GRAN # 2.48 (1.4-6.5); GRAN % 52.9 % (50.0-68.0); HEMOGLOBIN 11.5 g/dL (12.0-16.0); LYMPH # 1.2 (1.2-3.4); LYMPH % 25.6 % (22.0-35.0); MEAN CORPUSCULAR HEMOGLOBIN 30.1 pg (25.0-35.0); MEAN CORPUSCULAR HGB CONC 33.8 g/dl (31.0-37.0); MEAN PLATELET VOLUME 10.9 fl (7.0-11.0); MONO # 0.6 (0.1-0.6); MONO % 13.2 % (1.0-6.0); RBC 3.82 10^6/uL (3.5-6.1); RED CELL DISTRIBUTION WIDTH 13.8 % (11.5-14.5); WHITE BLOOD COUNT 4.7 10^3/uL (4.5-11.0)
[2018-10-21 07:06] LABS: ALB/GLOB RATIO 1.1 (1.1-1.8); ALBUMIN 3.8 g/dL (3.0-4.8); ALT/SGPT 35 U/L (7-56); AST/SGOT 48 U/L (14-36); BLOOD UREA NITROGEN 7 mg/dL (7-21); CALCIUM 9.1 mg/dL (8.4-10.5); GFR NON-AFRICAN AMERICAN > 60
[2018-10-21 08:17] VITALS: BP 102/48; PULSE 61; RESP 20; TEMP 98; O2SAT 100
[2018-10-21] MEDS: Pantoprazole 40 mg EC Tab PO SCH (08:29)
[2018-10-21] MEDS: Cefpodoxime (Vantin) 200 mg Tab PO SCH (10:29)
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
== END 2018-10-21 17:26 | disposition home or self-care (01) | DRG 757 ==
LOC: ED 07:47 → ERH 14:31 → 5RNO 15:59 → OBSVTOIN 10-18 14:02 → 5RNO 10-19 11:30
PROVIDERS: ADMIT Internal Medicine; ATTEND Internal Medicine
PROC: 0SB40ZZ Excision of Lumbosacral Disc, Open Approach (ICD-10-PCS; principal; 2018-10-19 12:00)
DX: M51.27 Other intervertebral disc displacement, lumbosacral region (principal); N39.0 Urinary tract infection, site not specified; Z85.71 Personal history of Hodgkin lymphoma; F12.90 Cannabis use, unspecified, uncomplicated; G89.29 Other chronic pain; Z92.3 Personal history of irradiation; Z92.21 Personal history of antineoplastic chemotherapy